=== PATIENT | female | born 1960 | race Caucasian/White ===

== ENCOUNTER 2022-05-23 21:12 | Emergency (ER) | payer OTHER ==
[~2022-05-23] VITALS: Ht 165.1 cm; Wt 124.7 kg
[~2022-05-23 21:12] MED LIST: ALPR0.5T2 PO; DICL1GEL11 TP; ESOM40EC PO; FLUO10CA21 PO; LOSA25TA32 PO; METF-346 PO; MYCPWD TP; PRE.625 PO; PREG150C PO; SIMV40TA1 PO; TAMS0.4C96 PO; TRAM50TA1 PO; VITB12I IM
[2022-05-23 21:24] VITALS: BP 155/84
--- NOTE | 2022-05-23 21:31 | NUR ---
Patient ambulated to bed 11.
--- NOTE | 2022-05-23 21:51 | NUR ---
61 YO F BIB SELF WITH C/C OF 9/10 RT BREAST PAIN X1 MONTH. PT WAS SEEN AT [facility]RGENT AND SENT D/T LUMP IN RT BREAST. PT STATES SHE ALREADY HAS 2 CYST IN EACH BREAST. REPORTS A RASH UNDER RT BREAST THAT EXTENDS TO BACK. PT REPORTS N/V [id number]. STATES SHE HAS BEEN SWEATING A LOT TOO. HX:DM, HTN, HDL, NEUROPATHY, BACK PROBLEMS
--- NOTE | 2022-05-23 22:01 | NUR ---
Dr. Harrison examining patient.
[2022-05-23] MEDS ORDERED: KETOROLAC 30 MG/ML VIAL IM ONE (22:10)
[2022-05-23] MEDS ORDERED: DICYCLOMINE HCL LIQUID 20 MG, ALUMINUM HYD/MAG/SIMETHICONE 30 ML, LIDOCAINE VISCOUS 2% ... PO ONE ×3 (22:10)
[2022-05-23] MEDS ORDERED: ONDANSETRON 4 MG ODT PO ONE (22:10)
[2022-05-23] MEDS ORDERED: FAMOTIDINE 20 MG TAB PO ONE (22:15)
[2022-05-23] MEDS ORDERED: DICYCLOMINE HCL LIQUID 10 MG/5 ML UDC ONE (22:21)
[2022-05-23] MEDS ORDERED: ALUMINUM HYD/MAG/SIMETHICONE 30 ML UDC ONE (22:21)
[2022-05-23 22:25] LABS: BASOPHILS # (AUTO) 0.1 K/uL (0.00-0.22); BASOPHILS % (AUTO) 0.7 % (0.0-2.0); EOSINOPHILS # (AUTO) 0.1 K/uL (0-0.4); EOSINOPHILS % (AUTO) 0.6 % (0.0-4.0); HEMATOCRIT 41.6 % (36-48); HEMOGLOBIN 13.7 g/dL (12.0-16.0); LYMPHOCYTES # (AUTO) 1.2 K/uL (2.5-16.5); LYMPHOCYTES % (AUTO) 13.2 % (20.5-51.1); MEAN CORPUSCULAR HEMOGLOBIN 30 pg (27-31); MEAN CORPUSCULAR HGB CONC 33 g/dL (33-37); MEAN CORPUSCULAR VOLUME 90.3 fL (80-94); MONOCYTES # (AUTO) 0.5 K/uL (0.8-1.0); MONOCYTES % (AUTO) 5.9 % (1.7-9.3); NEUTROPHILS # (AUTO) 6.9 K/uL (1.8-7.7); NEUTROPHILS % (AUTO) 79.6 % (42.2-75.2); PLATELET COUNT (AUTO) 169 K/uL (140-450); RED CELL DISTRIBUTION WIDTH 14.7 % (11.6-13.7); WHITE BLOOD COUNT (AUTO) 8.7 K/uL (4.8-10.8)
--- NOTE | 2022-05-23 22:32 | NUR ---
PT UNABLE TO URINATE AT THIS TIME. URINE CUP AT BEDSIDE.
[2022-05-23 22:49] LABS: ALBUMIN 3.5 g/dL (3.4-5.0); ANION GAP 12.3 (8-16); CARBON DIOXIDE 26.8 mmol/L (21-32); CREATININE 1.1 mg/dL (0.6-1.3); POTASSIUM 4.1 mmol/L (3.5-5.1); TOTAL BILIRUBIN 0.7 mg/dL (0.0-1.0)
--- NOTE | 2022-05-23 23:31 | NUR ---
Ultrasound at bedside.
--- NOTE | 2022-05-24 00:02 | NUR ---
pt gave permission to update daughter koki and justino wagoner. chirags number [phone]
[2022-05-24 01:59] LABS: APPEARANCE,URINE CLEAR (CLEAR); BILIRUBIN,URINE NEGATIVE (NEGATIVE); BLOOD, URINE NEGATIVE (NEGATIVE); COLOR,URINE YELLOW (YELLOW); LEUKOCYTE ESTERASE ,URINE NEGATIVE (NEGATIVE); NITRITE, URINE NEGATIVE (NEGATIVE); UGLUCOSE NEGATIVE (NEGATIVE)
[2022-05-24] MEDS ORDERED: ACET-10509 PO (02:42)
[2022-05-24] MEDS ORDERED: PANT40EC PO (02:42)
[2022-05-24] MEDS ORDERED: SUCR1TAB35 PO (02:42)
[2022-05-24 02:47] VITALS: BP 132/75
--- NOTE | 2022-05-24 02:47 | NUR ---
Patient discharged with v/s stable. Written and verbal after care instructions given and explained. Patient alert, oriented and verbalized understanding of instructions. Ambulatory with steady gait. All questions addressed prior to discharge. ID band removed. Patient advised to follow up with PMD. Rx of tylenol, protonix, carafate given. Patient educated on indication of medication including possible reaction and side effects. Opportunity to ask questions provided and answered.
== END 2022-05-24 02:47 | disposition home or self-care (01) ==
LOC: MED 21:12
DX: K29.70 Gastritis, unspecified, without bleeding (principal); N63.10 Unspecified lump in the right breast, unspecified quadrant; K76.0 Fatty (change of) liver, not elsewhere classified; K86.89 Other specified diseases of pancreas; I10 Essential (primary) hypertension; J45.909 Unspecified asthma, uncomplicated; E11.9 Type 2 diabetes mellitus without complications; K21.9 Gastro-esophageal reflux disease without esophagitis; E07.9 Disorder of thyroid, unspecified; B02.9 Zoster without complications; Z79.84 Long term (current) use of oral hypoglycemic drugs; Z88.0 Allergy status to penicillin; Z91.018 Allergy to other foods; Z91.013 Allergy to seafood; Z88.5 Allergy status to narcotic agent; Z79.899 Other long term (current) drug therapy; Z90.49 Acquired absence of other specified parts of digestive tract; Z98.890 Other specified postprocedural states
CPT/HCPCS: 36415; 71045; 76705; 80053; 81003; 83690; 85025; 93005; 96372; 99285; J1885; Q0092; Q0162

== ENCOUNTER 2022-05-26 21:20 | Emergency (ER) | payer OTHER ==
[~2022-05-26] VITALS: Ht 162.6 cm; Wt 125.2 kg
[~2022-05-26 21:20] MED LIST changes: +ACET-10509 PO; +PANT40EC PO; +SUCR1TAB35 PO
[2022-05-26 21:28] VITALS: BP 144/67
--- NOTE | 2022-05-26 21:28 | NUR ---
BOB SANTIAGO TAKEN TO BED #8
--- NOTE | 2022-05-26 21:54 | NUR ---
PT IN ROOM 8
--- NOTE | 2022-05-26 22:03 | NUR ---
61YR FEMALE BIB SELF C/O MULTI COMPLIANTS . CP PAIN/BURNING V/D X4DAYS. DENIES SOB. RESP EVEN AND UNLABORED. 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 HOB ELEVATED NO DISTRESS NOTED. PT IS A&OX4. PCN DM HTN
--- NOTE | 2022-05-26 22:29 | NUR ---
Patient being evaluated by physician at bedside.
[2022-05-26] MEDS ORDERED: LORazepam 2 MG/ML VIAL IM ONE (22:35)
[2022-05-26 23:15] VITALS: BP 159/73
--- NOTE | 2022-05-26 23:15 | NUR ---
Patient discharged with v/s stable. Written and verbal after care instructions given and explained. Patient verbalized understanding. Ambulatory with steady gait. All questions addressed prior to discharge. Advised to follow up with PMD.
--- NOTE | 2022-05-26 23:41 | NUR ---
The patient's care was reviewed and supervised by Fide Morales RN.
== END 2022-05-26 23:15 | disposition home or self-care (01) ==
LOC: MED 21:20
DX: R06.4 Hyperventilation (principal); F41.9 Anxiety disorder, unspecified; J45.909 Unspecified asthma, uncomplicated; E11.9 Type 2 diabetes mellitus without complications; K21.9 Gastro-esophageal reflux disease without esophagitis; I10 Essential (primary) hypertension; E07.9 Disorder of thyroid, unspecified; Z79.84 Long term (current) use of oral hypoglycemic drugs; Z88.0 Allergy status to penicillin; Z79.899 Other long term (current) drug therapy
CPT/HCPCS: 96372; 99283; J2060

== ENCOUNTER 2022-12-21 17:02 | Emergency (ER) | payer OTHER ==
[~2022-12-21] VITALS: Ht 162.6 cm; Wt 122.0 kg
[~2022-12-21 17:02] MED LIST changes: +SIMV-373 PO; -SIMV40TA1 PO; +TRAM-748 PO; -TRAM50TA1 PO
[2022-12-21 17:10] VITALS: BP 162/73
--- NOTE | 2022-12-21 17:15 | NUR ---
PT AMBULATED TO BED 2
[2022-12-21] MEDS ORDERED: DICYCLOMINE HCL LIQUID 20 MG, ALUMINUM HYD/MAG/SIMETHICONE 30 ML, LIDOCAINE VISCOUS 2% ... PO ONE ×3 (17:25)
[2022-12-21] MEDS ORDERED: ALUMINUM HYD/MAG/SIMETHICONE 30 ML UDC ONE (17:27)
[2022-12-21] MEDS ORDERED: DICYCLOMINE HCL LIQUID 10 MG/5 ML UDC ONE (17:27)
[2022-12-21] MEDS ORDERED: KETOROLAC 60 MG/2 ML VIAL IM ONE (18:15)
[2022-12-21] MEDS ORDERED: OMEP40EC24 PO (18:17)
[2022-12-21] MEDS ORDERED: LOSA50TA66 PO (18:40)
--- NOTE | 2022-12-21 18:45 | NUR ---
Patient discharged with v/s stable. Written and verbal after care instructions FOR GERD given and explained. Patient alert, oriented and verbalized understanding of instructions. Ambulatory with steady gait. All questions addressed prior to discharge. ID band removed. Patient advised to follow up with PMD. Rx of OMEPRAZOLE given. Opportunity to ask questions provided and answered.
== END 2022-12-21 18:45 | disposition home or self-care (01) ==
LOC: MED 17:02
DX: R10.13 Epigastric pain (principal); R07.9 Chest pain, unspecified; R11.0 Nausea; J45.909 Unspecified asthma, uncomplicated; E11.9 Type 2 diabetes mellitus without complications; K21.9 Gastro-esophageal reflux disease without esophagitis; I10 Essential (primary) hypertension; Z86.39 Personal history of other endocrine, nutritional and metabolic disease; Z90.49 Acquired absence of other specified parts of digestive tract; Z79.899 Other long term (current) drug therapy; Z79.891 Long term (current) use of opiate analgesic; Z88.0 Allergy status to penicillin
CPT/HCPCS: 93005; 96372; 99283; J1885

== ENCOUNTER 2023-01-01 13:45 | Emergency (ER) | payer OTHER ==
[~2023-01-01] VITALS: Ht 162.6 cm; Wt 108.0 kg
[~2023-01-01 13:45] MED LIST changes: +LOSA50TA66 PO; +OMEP40EC24 PO
[2023-01-01 14:02] VITALS: BP 150/94
[2023-01-01] MEDS ORDERED: NACL 0.9% 1,000 ML IV SCH (16:00)
[2023-01-01 16:28] LABS: BASOPHILS % (AUTO) 0.5 % (0.0-2.0); EOSINOPHILS % (AUTO) 0.3 % (0.0-4.0); HEMATOCRIT 43.9 % (36-48); HEMOGLOBIN 14.5 g/dL (12.0-16.0); LYMPHOCYTES # (AUTO) 1.6 K/uL (2.5-16.5); LYMPHOCYTES % (AUTO) 16.6 % (20.5-51.1); MEAN CORPUSCULAR HEMOGLOBIN 30 pg (27-31); MEAN CORPUSCULAR HGB CONC 33 g/dL (33-37); MEAN CORPUSCULAR VOLUME 89.4 fL (80-94); MONOCYTES # (AUTO) 0.5 K/uL (0.8-1.0); MONOCYTES % (AUTO) 4.7 % (1.7-9.3); NEUTROPHILS # (AUTO) 7.5 K/uL (1.8-7.7); NEUTROPHILS % (AUTO) 77.9 % (42.2-75.2); PLATELET COUNT (AUTO) 192 K/uL (140-450); RED CELL DISTRIBUTION WIDTH 14.3 % (11.6-13.7); WHITE BLOOD COUNT (AUTO) 9.6 K/uL (4.8-10.8)
[2023-01-01] MEDS ORDERED: ACETAMINOPHEN 325 MG TAB PO ONE (16:40)
[2023-01-01] MEDS ORDERED: LORazepam 0.5 MG TAB PO ONE (16:40)
[2023-01-01 17:04] LABS: ALBUMIN 3.8 g/dL (3.4-5.0); ANION GAP 12.4 (8-16); CARBON DIOXIDE 32.2 mmol/L (21-32); POTASSIUM 3.6 mmol/L (3.5-5.1); TOTAL BILIRUBIN 0.8 mg/dL (0.0-1.0)
[2023-01-01] MEDS ORDERED: ALUM355S59 PO (18:07)
== END 2023-01-01 15:11 | disposition left against medical advice (07) ==
LOC: MED 13:45
DX: R10.13 Epigastric pain (principal); J45.909 Unspecified asthma, uncomplicated; E11.9 Type 2 diabetes mellitus without complications; K21.9 Gastro-esophageal reflux disease without esophagitis; I10 Essential (primary) hypertension; Z90.49 Acquired absence of other specified parts of digestive tract; Z98.890 Other specified postprocedural states; Z79.899 Other long term (current) drug therapy; Z88.0 Allergy status to penicillin
CPT/HCPCS: 36415; 80053; 83690; 85025; 99283